=== PATIENT | male | born 1975 | race African-American/Black ===

== ENCOUNTER 2021-03-06 10:30 | Emergency (ER) | payer MEDICAID ==
[~2021-03-06] VITALS: Ht 172 cm; Wt 83.9 kg
--- NOTE | 2021-03-06 11:02 | ED General ---
General Chief Complaint: Respiratory Problems Stated Complaint: COUGH,SOB Source of Information: Patient Exam Limitations: No Limitations History of Present Illness Date Seen by Provider: Mar 06, 2021 Time Seen by Provider: 11:02 Initial Comments To ER with reports of cough and shortness of breath since last night. Was released from Covid quarantine on 02/19/2021. Is also out of his alprazolam Timing/Duration: 1-2 Days Severity: Moderate Associated Systoms: Denies Symptoms Allergies and Home Medications Allergies Coded Allergies: epinephrine (Unverified Allergy, Mild, 03/09/09) Home Medications Albuterol Sulfate 1 Puff Puff, 2 PUFF IH Q4H PRN for SHORTNESS OF BREATH 1 PUFF = 90 MCG Prescribed by: DIANA PAEZ on 03/06/21 1143 Alprazolam 1 Mg Tablet, 1 MG PO DAILY PRN for ANXIETY Prescribed by: DIANA PAEZ on 03/06/21 1144 Patient Home Medication List Home Medication List Reviewed: Yes Review of Systems Review of Systems Constitutional: see HPI EENTM: see HPI Respiratory: see HPI, cough Cardiovascular: no symptoms reported Genitourinary: no symptoms reported Musculoskeletal: no symptoms reported Skin: no symptoms reported Psychiatric/Neurological: No Symptoms Reported Hematologic/Lymphatic: No Symptoms Reported Immunological/Allergic: no symptoms reported Past Eniznhx-Shjkom-Skppvw Hx Patient Social History Tobacco Use?: No Smoking Status: Former Smoker Substance use?: No Alcohol Use?: Yes Pt feels they are or have been: No Immunizations Up To Date First/Initial COVID19 Vaccinat: October 2020 COVID19 Vaccine [employer]: [employer] Past Medical History Reproductive Disorders: No Gastroesophageal Reflux Anxiety Physical Exam Vital Signs Vital Signs - First Documented 03/06/21 10:35 Temp 36.8 Pulse 85 Resp 18 B/P (MAP) 141/100 (114) Pulse Ox 96 O2 Delivery Room Air Capillary Refill : Height, Weight, BMI Height: 5'9" Weight: 185lbs. oz. 83.479360cy; BMI Method:Stated General Appearance: No Apparent Distress, WD/WN, Other (And oriented no distress heart rate 85 oxygen saturation 98% room air) Eyes: Bilateral Eye Normal Inspection, Bilateral Eye PERRL, Bilateral Eye EOMI Neck: Full Range of Motion, Normal Inspection Respiratory: Normal Breath Sounds, No Accessory Muscle Use, No Respiratory Distress Cardiovascular: Regular Rate, Rhythm, Normal Peripheral Pulses Gastrointestinal: Non Tender, Soft Extremity: Normal Capillary Refill, Normal Inspection Neurologic/Psychiatric: Alert, Oriented x3 Progress/Results/Core Measures Suspected Sepsis SIRS Temperature: Pulse: Respiratory Rate: Blood Pressure / Mean: Results/Orders My Orders Orders - DIANA PAEZ APRN Chest Pa/Lat (2 View) (03/06/21 10:51) Vital Signs/I&O 03/06/21 10:35 Temp 36.8 Pulse 85 Resp 18 B/P (MAP) 141/100 (114) Pulse Ox 96 O2 Delivery Room Air Capillary Refill : Diagnostic Imaging Diagonstic Imaging: Xray Plain Films/CT/US/NM/MRI: chest Comments clear lungs Reviewed: Reviewed by Me Departure Impression Primary Impression: Post-COVID syndrome Disposition: 01 HOME, SELF-CARE Condition: Stable Departure-Patient Inst. Decision time for Depature: 11:20 Referrals: [facility] (PCP/Family) Primary Care Physician Patient Instructions: Recovery After COVID-19 Scripts Albuterol Sulfate (PROAIR HFA) 1 Puff Puff 2 PUFF IH Q4H PRN for SHORTNESS OF BREATH, #1 EA 1 PUFF = 90 MCG Prov: DIANA PAEZ APRN 03/06/21 Alprazolam (Xanax) 1 Mg Tablet 1 MG PO DAILY PRN for ANXIETY, #10 TAB Prov: DIANA PAEZ APRN 03/06/21 Work/School Note: Work Release Form Date Seen in the Emergency Department: Mar 06, 2021 Return to Work: Mar 07, 2021 DIANA PAEZ APRN Mar 06, 2021 11:02
--- NOTE | 2021-03-06 11:37 | Diagnostic Imaging Report ---
EXAMINATION: Chest 2 view HISTORY: soa COMPARISON: None available. FINDINGS: Heart size and pulmonary vasculature are normal. The lungs are clear without consolidation, pleural effusion, or pneumothorax. The osseous structures are intact. IMPRESSION: 1. No acute radiographic abnormality in the chest. Dictated by: Dictated on workstation # [id number]
[2021-03-06] MEDS ORDERED: ALPR1TAB2 PO (11:43)
[2021-03-06] MEDS ORDERED: RT-ALBUINH IH (11:43)
[2021-03-06 11:49] VITALS: BP 135/105
== END 2021-03-06 11:49 | disposition home or self-care (01) ==
LOC: EDUNIT# 10:30 → ER 10:32
DX: R06.02 Shortness of breath (principal); Z87.891 Personal history of nicotine dependence
CPT/HCPCS: 71046

== ENCOUNTER → 2021-10-02 | Outpatient (CLI) | payer OTHER, MEDICAID ==
[~2021-10-02] MED LIST: ALPR1TAB2 PO; RT-ALBUINH IH
--- NOTE | 2021-10-02 14:59 | Diagnostic Imaging Report ---
PROCEDURE: MR imaging cervical spine without contrast. TECHNIQUE: Multiplanar, multisequence MR imaging of the cervical spine was performed without contrast. INDICATION: Neck pain and football injury. COMPARISON: No prior examinations are available for comparison. FINDINGS: The cervical vertebral body heights are maintained and their alignment is anatomic. No bone contusion, marrow edema, or fracture. No evidence for ligamentous injury. No paraspinal or epidural hematoma. The spinal cord shows normal volume, morphology, and signal intensity. No cord compression, edema, or hemorrhage. The craniocervical relationship is normal. The C1-C2 and C2-C3 levels and discs are normal. C3-C4: There is disc desiccation, stature loss, and bulge with left greater than right uncovertebral joint spurring. The findings result in borderline mild spinal canal stenosis with a mild degree of left foraminal narrowing. C4-C5: Posterior osteophyte/disc material indents the ventral thecal sac with mild canal stenosis. There is moderate left and mild to moderate right neuroforaminal stenosis. C5-C6: In addition to diffuse disc bulges, a focal midline protrusion indenting the ventral thecal sac results in moderate spinal canal stenosis. Uncovertebral joint spurring, greater left, with moderate left and mild right neuroforaminal stenoses. C6-C7: This level and disc are unremarkable. No stenosis. C7-T1: This level shows no significant stenosis. Mild midline focal disc protrusion is noted. IMPRESSION: 1. Disc bulge and endplate hypertrophy with uncovertebral joint spurring result in multilevel stenoses of spinal canal and neural foramen as detailed level by level above. 2. Normal spinal cord. No bone contusion, fracture, or ligamentous injury. Dictated by: Dictated on workstation # [id number]
== END ==
LOC: RAD 14:00
PROVIDERS: ATTEND Physician Assistant
DX: M50.23 Other cervical disc displacement, cervicothoracic region (principal); M48.02 Spinal stenosis, cervical region; M50.31 Other cervical disc degeneration, high cervical region; M47.812 Spondylosis without myelopathy or radiculopathy, cervical region; G56.92 Unspecified mononeuropathy of left upper limb
CPT/HCPCS: 72141

== ENCOUNTER 2022-12-31 14:41 | Emergency (ER) | payer OTHER, MEDICAID ==
[~2022-12-31] VITALS: Ht 172 cm; Wt 75.0 kg
[~2022-12-31 14:41] MED LIST changes: +ALBU8.5H6 IH; -RT-ALBUINH IH
[2022-12-31] MEDS ORDERED: LACTATED RINGERS 1,000 ML IV STA (14:55)
[2022-12-31 15:01] LABS: BASOPHILS % (AUTO) 1 % (0-10); EOSINOPHILS % (AUTO) 1 % (0-10); HEMATOCRIT 37 % (40-54); HEMOGLOBIN 12.6 g/dL (13.3-17.7); LYMPHOCYTES # (AUTO) 1.1 10^3/uL (1.0-4.0); LYMPHOCYTES % (AUTO) 30 % (12-44); MEAN CORPUSCULAR HEMOGLOBIN 32 pg (25-34); MEAN CORPUSCULAR HGB CONC 35 g/dL (32-36); MEAN CORPUSCULAR VOLUME 94 fL (80-99); MEAN PLATELET VOLUME 10.6 fL (9.0-12.2); MONOCYTES # (AUTO) 0.4 10^3/uL (0.0-1.0); MONOCYTES % (AUTO) 9 % (0-12); NEUTROPHILS # (AUTO) 2.2 10^3/uL (1.8-7.8); NEUTROPHILS % (AUTO) 58 % (42-75); PLATELET COUNT 166 10^3/uL (130-400); WHITE BLOOD COUNT 3.7 10^3/uL (4.3-11.0)
[2022-12-31] MEDS ORDERED: LACTATED RINGERS 1,000 ML IV ONE (15:01)
--- NOTE | 2022-12-31 15:01 | ED General ---
General Chief Complaint: General Problems/Pain Stated Complaint: DEHYDRATED | Nursing Triage Note: PT STATES GENERAL WEAKNESS, WORKS IN THE HEAT, DIARRHEA Source of Information: Patient Exam Limitations: No Limitations History of Present Illness Date Seen by Provider: Dec 31, 2022 Time Seen by Provider: 14:49 Initial Comments Here with report of feeling weak and dehydrated. Apparently while driving earlier, he felt stomach pain and he started to get a panic attack. He has history of anxiety and panic. He called EMS and they did check him out on the scene. They did recommend transport due to patient's concerns and he declined due to cost. Ultimately presented himself to the emergency department for evaluation. States he has been working in and out of the heat for the last 2 weeks and has had intermittent diarrhea including over the last couple of days and thinks that he may be dehydrated. He does have history of reflux disease and occasionally gets stomach problems and sometimes it does set off his anxiety. Overall he is feeling much better in that respect but just feels, weak still. Denies nausea or vomiting. Denies chest pain or breathing problems. Timing/Duration: 1 Hour, Changing Over Time Severity: Mild, Moderate Associated Systoms: No Chest Pain, No Cough, No Fever/Chills, No Nausea/Vomiting, No Shortness of Air; Weakness Allergies and Home Medications Allergies Coded Allergies: epinephrine (Unverified Allergy, Mild, 03/09/09) Patient Home Medication List Home Medication List Reviewed: Yes Albuterol Sulfate (Ventolin Hfa) 1 Puff Puff, 2 PUFF IH Q4H PRN for SHORTNESS OF BREATH Prescribed by: DIANA PAEZ on 03/06/21 1143 Alprazolam (Xanax) 1 Mg Tablet, 1 MG PO DAILY PRN for ANXIETY Prescribed by: DIANA PAEZ on 03/06/21 1144 Review of Systems Review of Systems Constitutional: No fever; weakness EENTM: no symptoms reported Respiratory: No cough, No short of breath Cardiovascular: No chest pain, No palpitations Gastrointestinal: abdominal pain (Epigastric), diarrhea; No nausea, No vomiting Genitourinary: no symptoms reported Musculoskeletal: see HPI Psychiatric/Neurological: Anxiety Past Ygpqwvj-Lwmfua-Jkwlji Hx Patient Social History Tobacco Use?: Yes Substance use?: No Alcohol Use?: Yes Alcohol type: Beer Alcohol Frequency: Couple times a week Immunizations Up To Date First/Initial COVID19 Vaccinat: October 2020 Second COVID19 Vaccination Josue: October 2020 Third COVID19 Vaccination Date: October 2020 Past Medical History Surgery/Hospitalization HX: ANXIETY, GERD Surgeries: No Cardiac: Yes High Cholesterol Reproductive Disorders: No Gastrointestinal: Yes Gastroesophageal Reflux Psychosocial: Yes Anxiety Family Medical History Reviewed Nursing Family Hx Physical Exam Vital Signs Vital Signs - First Documented 12/31/22 14:49 Temp 37.0 Pulse 86 Resp 20 B/P (MAP) 149/98 (115) Pulse Ox 98 O2 Delivery Room Air Capillary Refill : Less Than 3 Seconds Height, Weight, BMI Height: 5'9" Weight: 185lbs. oz. 83.605322ob; 25.00 BMI Method:Stated General Appearance: No Apparent Distress, WD/WN HEENT: PERRL/EOMI, Pharynx Normal Respiratory: Lungs Clear, Normal Breath Sounds Cardiovascular: Regular Rate, Rhythm, No Murmur Gastrointestinal: Non Tender, Soft Extremity: Normal Range of Motion, Non Tender, No Calf Tenderness, No Pedal Edema Neurologic/Psychiatric: Alert, Oriented x3 Skin: Normal Color, Warm/Dry Progress/Results/Core Measures Suspected Sepsis SIRS Temperature: Pulse: 86 Respiratory Rate: 20 Laboratory Tests 12/31/22 14:50: White Blood Count 3.7L Blood Pressure 149 /98 Mean: 115 Laboratory Tests 12/31/22 14:50: Creatinine 1.31H, Platelet Count 166, Total Bilirubin 0.6 Results/Orders Lab Results Laboratory Tests Test 12/31/22 14:50 Range/Units White Blood Count 3.7 L 4.3-11.0 10^3/uL Red Blood Count 3.89 L 4.30-5.52 10^6/uL Hemoglobin 12.6 L 13.3-17.7 g/dL Hematocrit 37 L 40-54 % Mean Corpuscular Volume 94 80-99 fL Mean Corpuscular Hemoglobin 32 25-34 pg Mean Corpuscular Hemoglobin Concent 35 32-36 g/dL Red Cell Distribution Width 12.9 10.0-14.5 % Platelet Count 166 130-400 10^3/uL Mean Platelet Volume 10.6 9.0-12.2 fL Immature Granulocyte % (Auto) 0 % Neutrophils (%) (Auto) 58 42-75 % Lymphocytes (%) (Auto) 30 12-44 % Monocytes (%) (Auto) 9 0-12 % Eosinophils (%) (Auto) 1 0-10 % Basophils (%) (Auto) 1 0-10 % Neutrophils # (Auto) 2.2 1.8-7.8 10^3/uL Lymphocytes # (Auto) 1.1 1.0-4.0 10^3/uL Monocytes # (Auto) 0.4 0.0-1.0 10^3/uL Eosinophils # (Auto) 0.0 0.0-0.3 10^3/uL Basophils # (Auto) 0.0 0.0-0.1 10^3/uL Immature Granulocyte # (Auto) 0.0 0.0-0.1 10^3/uL Sodium Level 142 135-145 MMOL/L Potassium Level 3.5 L 3.6-5.0 MMOL/L Chloride Level 103 98-107 MMOL/L Carbon Dioxide Level 26 21-32 MMOL/L Anion Gap 13 5-14 MMOL/L Blood Urea Nitrogen 13 7-18 MG/DL Creatinine 1.31 H 0.60-1.30 MG/DL Estimat Glomerular Filtration Rate 68 BUN/Creatinine Ratio 10 Glucose Level 103 70-105 MG/DL Calcium Level 9.1 8.5-10.1 MG/DL Corrected Calcium 9.1 8.5-10.1 MG/DL Total Bilirubin 0.6 0.1-1.0 MG/DL Aspartate Amino Transf (AST/SGOT) 81 H 5-34 U/L Alanine Aminotransferase (ALT/SGPT) 71 H 0-55 U/L Alkaline Phosphatase 77 40-136 U/L Total Protein 7.2 6.4-8.2 GM/DL Albumin 4.0 3.2-4.5 GM/DL My Orders Orders - BRIDGETTE SALAZAR MD Cbc With Automated Diff (12/31/22 14:55) Comprehensive Metabolic Panel (12/31/22 14:55) Lactated Ringers (Lr 1000 Ml Iv Solution (12/31/22 14:55) Ed Iv/Invasive Line Start (12/31/22 14:55) Lactated Ringers (Lr 1000 Ml Iv Solution (12/31/22 15:01) Medications Given in ED Current Medications Medications Dose Ordered Sig/Zeeshan Route Start Time Stop Time Status Last Admin Dose Admin Lactated Ringer's 1,000 ml @ [facility] ONCE IV 12/31/22 15:01 12/31/22 15:04 DC 12/31/22 15:30 1,000 MLS/HR Vital Signs/I&O 12/31/22 14:49 Temp 37.0 Pulse 86 Resp 20 B/P (MAP) 149/98 (115) Pulse Ox 98 O2 Delivery Room Air Capillary Refill : Less Than 3 Seconds Blood Pressure Mean: 115 Progress Note : Progress Note Seen and evaluated. We will check basic labs including CBC and CMP and give LR 1 L bolus. Heart rate is on the high end of appropriate. Blood pressure is slightly high currently but he states he has normally normal blood pressure. Monitor patient. Differential diagnosis includes dehydration and electrolyte abnormality. 1611: CBC reviewed and shows slightly low hemoglobin but otherwise no significant abnormality. Chemistry does show slightly elevated serum creatinine as well as slightly elevated LFTs. I believe this is related to dehydration. He did receive 2 L of LR and is overall feeling much better. Discharged home with return precautions. Patient verbalized understanding instructions and agreement with plan. Departure Impression Primary Impression: Dehydration Additional Impression: Diarrhea Qualified Codes: R19.7 - Diarrhea, unspecified Disposition: HOME, SELF-CARE Condition: Improved Departure-Patient Inst. Decision time for Depature: 16:12 Referrals: [facility] (PCP/Family) Primary Care Physician Patient Instructions: Diarrhea, Adult ED, Dehydration, Adult ED Add. Discharge Instructions: All discharge instructions reviewed with patient and/or family. Voiced understanding. Drink plenty of fluids by taking small sips frequently. Follow-up with your doctor for recheck and further evaluation. You should recheck your blood pressure several times over the next week and report those results to your doctor if they are high. Clear a light diet for the next 24 hours and then advance as tolerated. Return for worse pain, fever, vomiting, weakness, breathing problems or other concerns as needed. Copy Copies To 1: MICAH HERNÁNDEZ MD, TIMOTHY D MD Dec 31, 2022 15:01
[2022-12-31 15:10] LABS: POTASSIUM 3.5 MMOL/L (3.6-5.0)
[2022-12-31 15:11] LABS: CALCIUM 9.1 MG/DL (8.5-10.1)
[2022-12-31 15:12] LABS: TOTAL PROTEIN 7.2 GM/DL (6.4-8.2)
[2022-12-31 15:14] LABS: BILIRUBIN,TOTAL 0.6 MG/DL (0.1-1.0)
[2022-12-31 15:16] LABS: CREATININE SERUM 1.31 MG/DL (0.60-1.30)
[2022-12-31 16:46] VITALS: BP 144/96
== END 2022-12-31 16:46 | disposition home or self-care (01) ==
LOC: EDUNIT# 14:41 → ER 14:44
DX: E86.0 Dehydration (principal); R19.7 Diarrhea, unspecified
CPT/HCPCS: 36415; 80053; 85025